=== PATIENT | female | born 2000 | race Caucasian/White ===

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

== ENCOUNTER 2019-06-25 05:46 | Inpatient (IN) ==
[2019-06-25] MEDS ORDERED: ONDANSETRON 4 MG/2 ML VIAL IV PRN ×2 (05:57→20:21)
[2019-06-25] MEDS ORDERED: MEPERIDINE 50 MG/1 ML VIAL IV PRN (05:57)
[2019-06-25 06:42] LABS: Basophils # 0.1 10*3/uL (0.0-0.2); Basophils % 0.6 % (0.0-0.8); Eosinophils # 0.2 10*3/uL (0.0-0.87); Eosinophils % 1.6 % (0.00-10.9); Hematocrit 35.2 VOL% (35.7-47.0); Hemoglobin 11.2 GM/DL (12.0-16.0); Immature Granulocytes % 1.8 %; Immature Granulocytes Absolute 0.26 #; Lymphocytes # 2.3 10*3/uL (1.4-4.0); Lymphocytes % 16.1 % (21.3-54.2); Mean Corpuscular HGB Conc 31.8 GM/DL (32-36); Mean Corpuscular Volume 91.7 FL (87-102); Mean Platelet Volume 10.6 FL (9.6-12.0); Monocytes % 7.5 % (1.7-12.7); Neutrophils % 72.4 % (38.7-73.9); Platelet Count 207 T/CUMM (130-400); Red Blood Count 3.84 MC/CUMM (3.8-5.5); Red Cell Distribution Width 13.7 % (9.3-17.3); White Blood Count 14.3 T/CUMM (4-12)
[2019-06-25 06:58] LABS: Albumin 2.5 G/DL (3.4-5.0); Bilirubin,Total 0.9 MG/DL (0.2-1.0); Calcium 8.9 MG/DL (8.5-10.1); Osmolality,Calculated 271.7 MOS/KG (273-304); Total Protein 6.7 G/DL (6.4-8.3)
[2019-06-25] MEDS: LACTATED RINGERS 1,000 ML IV SCH ×2 (07:12→15:25)
[2019-06-25 07:22] LABS: Apearance,Urine CLEAR (Clear); Bilirubin,Urine Negative (Negative); Blood, Urine Negative (Negative); Glucose,Urine (UA) Negative (Negative); Ketones,Urine Negative (Negative); Mucus,Urine Occasional /LPF (Occasional); Nitrite,Urine Negative (Negative); Protein,Urine Negative; RBC,Urine <1 /HPF (0-4); Squamous Epithelial Cell,Urine Few /HPF (0-10); Urine Color Yellow (Yellow); Urine Specific Gravity 1.011 (1.001-1.035); Urine Urobilinogen < 2.0 EU/DL (0.2-1.0); WBC,Urine <1 /HPF (0-6)
[2019-06-25] MEDS: OXYTOCIN/LR 20 UNIT/1,000 ML BAG IV SCH ×2 (07:50→22:10)
[2019-06-25] MEDS: BUTORPHANOL 2 MG/ML VIAL IV PRN ×3 (12:23→18:20)
[2019-06-25] MEDS ORDERED: MEPERIDINE 25 MG/1 ML VIAL IV PRN (15:01)
[2019-06-25] MEDS ORDERED: LIDOCAINE 1% 50 ML VIAL ONE (19:02)
[2019-06-25] MEDS ORDERED: METHYLERGONOVINE 0.2 MG/1 ML AMP ONE (19:03)
[2019-06-25] MEDS ORDERED: miSOPROStol 200 MCG TABLET ONE (19:03)
[2019-06-25] MEDS ORDERED: KETOROLAC 15 MG/1 ML VIAL IV PRN (20:21)
[2019-06-25] MEDS ORDERED: BISACODYL 10 MG SUPP RECTAL PRN (20:21)
[2019-06-25] MEDS ORDERED: MAGNESIUM HYDROXIDE SUSP 30 ML UDCUP PO PRN (20:21)
[2019-06-25] MEDS ORDERED: ACETAMINOPHEN 325 MG TABLET PO PRN (20:21)
[2019-06-25] MEDS ORDERED: LACTATED RINGERS 1,000 ML IV SCH (20:30)
[2019-06-26] MEDS ORDERED: ALBUTEROL 2.5 MG/3 ML NEB RESP TX SCH
[2019-06-26] MEDS: DOCUSATE SODIUM 100 MG CAPSULE PO SCH ×3 (00:58→20:39)
[2019-06-26 05:34] LABS: Basophils # 0.1 10*3/uL (0.0-0.2); Basophils % 0.2 % (0.0-0.8); Eosinophils # 0.1 10*3/uL (0.0-0.87); Eosinophils % 0.2 % (0.00-10.9); Hematocrit 33.6 VOL% (35.7-47.0); Hemoglobin 10.9 GM/DL (12.0-16.0); Immature Granulocytes % 1.1 %; Immature Granulocytes Absolute 0.23 #; Lymphocytes # 2.1 10*3/uL (1.4-4.0); Lymphocytes % 9.9 % (21.3-54.2); Mean Corpuscular HGB Conc 32.4 GM/DL (32-36); Mean Corpuscular Volume 91.3 FL (87-102); Mean Platelet Volume 10.8 FL (9.6-12.0); Monocytes % 7.4 % (1.7-12.7); Neutrophils % 81.2 % (38.7-73.9); Platelet Count 204 T/CUMM (130-400); Red Blood Count 3.68 MC/CUMM (3.8-5.5); Red Cell Distribution Width 13.5 % (9.3-17.3); White Blood Count 20.9 T/CUMM (4-12)
[2019-06-26 05:55] LABS: Hypochromasia 1+; Lymphocytes 8 % (20-55); Platelet Estimate Adequate; Segmented Neutrophils 84 % (50-85); Total Cells Counted 100
[2019-06-26 05:56] LABS: Microcytosis Slight
[2019-06-26] MEDS: MULTIVITAMIN (PRENATAL) TABLET PO SCH (08:36)
[2019-06-26] MEDS ORDERED: IBUPROFEN 800 MG TABLET ONE (11:28)
[2019-06-26] MEDS: IBUPROFEN 800 MG TABLET PO PRN ×2 (11:30→20:39)
[2019-06-26] MEDS ORDERED: ACETAMINOPHEN 500 MG TABLET PO PRN (21:45)
[2019-06-27] MEDS ORDERED: IBUPROFEN 800 MG TABLET PO PRN (02:00)
[2019-06-27 07:22] VITALS: BP 102/67
[2019-06-27] MEDS: DOCUSATE SODIUM 100 MG CAPSULE PO SCH (09:02)
[2019-06-27] MEDS: MULTIVITAMIN (PRENATAL) TABLET PO SCH (09:02)
[2019-06-27] MEDS: IBUPROFEN 800 MG TABLET PO PRN (09:57)
== END 2019-06-27 12:40 | disposition home or self-care (01) | DRG 560 ==
LOC: N.LDOUT 05:46 → N.LD 05:49 → N.OB 22:53
PROVIDERS: ADMIT Obstetrics & Gynecology; ATTEND Obstetrics & Gynecology